=== PATIENT | female | born 1975 | race Caucasian/White ===

== ENCOUNTER 2020-06-26 17:13 | Emergency (ER) | payer OTHER ==
[~2020-06-26] VITALS: Ht 162.6 cm; Wt 72.7 kg
--- NOTE | 2020-06-26 17:49 | EKG ---
[address] [address] Test Date: 2020-06-26 Test Time: 17:22:31 Pat Name: ANIYA AGUILAR Department: Room: Gender: F Outcomes Specialist: : [id number] Requested By: RUSH LAWRENCE Order Number: [id number] Reading MD: Measurements Intervals [place] Rate: 76 P: 0 IA: 112 QRS: 19 QRSD: 84 T: 33 QT: 388 QTc: 441 Interpretive Statements SINUS RHYTHM NO SPECIFIC ECG ABNORMALITIES RI6.02 No previous ECG available for comparison
--- NOTE | 2020-06-26 17:53 | PHYS DOC ---
Past History Past Medical History: Other Additional Past Medical Histor: polycystic Kidney disease, (SUMAYA COLLADO APRN) Alcohol Use: None (SUMAYA COLLADO APRN) Adult General Chief Complaint Chief Complaint: CHEST PAIN-CARDIAC NATURE HPI HPI Patient is a 45-year-old female presents emergency department complaining of chest pressure for the past 2 days. Patient rates her pressure a 6-7/10 on a 1- 10 pressure scale. Patient states that it does not radiate, denies nausea, vomiting, diarrhea, or abdominal pain. Patient states she has diaphoretic episodes, but seems to have them often. Patient states she notices the pain relieves for short period of time after taking Tums or other antacid. Patient denies heart palpitations, chest congestion, sore throat, nasal congestion. Patient denies head pain, neck pain, pain to her extremities, visual changes, urinary tract infection signs and symptoms, denies vaginal discharge or STI concerns. Patient denies loss of taste or loss of smell, patient states she has had her second dose of COVID-19 vaccine on the night, denies recent exposure to the COVID-19 virus. Patient states she follows closely with Dr. Olson and has discussed with Dr. Olson follow-up with a GI specialist as she has been having GI issues lately. Patient denies constipation or diarrhea today. Patient states no one else living in her home is having the same symptoms she. Patient states her only medications are losartan, fluoxetine, and a control pill. Patient denies smoking cigarettes, states she drinks occasionally with friends, denies illicit drug use. (SUMAYA COLLADO APRN) Review of Systems Review of Systems 14 body systems of review of systems have been reviewed. See HPI for pertinent positives and negative responses, otherwise all other systems are negative, nonpertinent or noncontributory. (SUMAYA COLLADO APRN) Physical Exam Physical Exam Constitutional: Well developed, well nourished, no acute distress, non-toxic ap pearance. 45-year-old female in no apparent distress. HENT: Normocephalic, atraumatic, bilateral external ears normal, oropharynx moist, no oral exudates, nose normal. No lymphadenopathy of the head or neck appreciated, oropharynx moist, no infectious process appreciated, bilateral TMs within normal limits no drainage noted. Eyes: PERRLA, EOMI, conjunctiva normal, no discharge. Neck: Normal range of motion, no tenderness, supple, no stridor. No midline spinal tenderness, no nuchal rigidity, no meningeal signs. Cardiovascular:Heart rate regular rhythm, heart sounds S1-S2 to auscultation. Lungs & Thorax: Bilateral breath sounds clear to auscultation all lung torres, no adventitious lung sounds appreciated. No increased pain to palpation of the anterior thorax and chest. Abdomen: Bowel sounds normal, soft, no tenderness, no masses, no pulsatile masses. Skin: Warm, dry, no erythema, no rash. Back: No tenderness along bony prominences of the vertebral spine or adjacent structures of the back Extremities: No tenderness, no cyanosis, no clubbing, ROM intact, no edema. Neurologic: Alert and oriented X 3, normal motor function, normal sensory function, no focal deficits noted. Psychologic: Affect normal, judgement normal, mood normal. (SUMAYA COLLADO APRN) Current Patient Data Vital Signs Vital Signs Date Time Temp Pulse Resp B/P (MAP) Pulse Ox O2 Delivery O2 Flow Rate FiO2 06/26/20 17:27 98.7 90 20 171/94 (119) 98 Room Air (SUMAYA COLLADO APRN) EKG EKG EKG performed at 1722 by ED nursing staff shows a heart rate of 76 bpm normal sinus rhythm without ectopy, SC interval 0.112, QTc interval 0.441, no acute STEMI, no ACS, no acute ischemia appreciated, EKG interpreted by ED attending physician Dr. Lawrence. (SUMAYA COLLADO APRN) Radiology/Procedures Radiology/Procedures [] (SUMAYA COLLADO APRN) Heart Score C/O Chest Pain: Yes HEART Score for Chest Pain: HEART Score for Chest Pain Response (Comments) Value History Slighlty/Non-Suspicious 0 ECG Normal 0 Age < 45 0 Risk Factors No Risk Factors 0 Troponin < Normal Limit 0 Total 0 Risk Factors: Risk Factors: DM, Current or recent (<one month) smoker, HTN, HLP, family history of CAD, obesity. Risk Scores: Risk Factors: DM, Current or recent (<one month) smoker, HTN, HLP, family h istory of CAD, obesity. (SUMAYA COLLADO APRN) Course & Med Decision Making Course & Med Decision Making Pertinent Labs and Imaging studies reviewed. (See chart for details) 45-year-old female, vital signs reviewed, presents emergency department complaint of chest pressure. Physical examination concerning for GI versus cardiorespiratory process. Patient's heart score was 0, cardiorespiratory examination was initiated in the ED. Patient's chest x-ray, EKG, serum labs nonconcerning for acute cardiorespiratory process. Patient will be given GI cocktail and reevaluated. Patient's heart score equals 0 Approximately 20 minutes after GI cocktail was administered, reevaluation of the patient found the patient to be pain-free and symptom-free, patient states she believes this GI cocktail did the trick. Discussed with patient findings of chest x-ray, EKG, and serum labs, discussed with patient this is most likely a dyspepsia or GI upset. Patient states she agrees with this as the GI cocktail relieved her symptoms. Discussed with patient will start on Pepcid 20 mg nightly for the next 30 days, strict follow-up with Dr. Olson as Dr. King is trying to secure a GI specialist for her to follow-up with. Patient gave verbal understanding of discharge home instructions, Pepcid prescription instructions, follow-up with Dr. King soon, return to ER precautions and concerns, patient was discharged home without incident. (SUMAYA COLLADO APRN) Course & Med Decision Making I oversaw care of patient while in ER and reviewed case with [employer]. I agree to note and plan of care Electronically signed, Rush Lawrence DO (RUSH LAWRENCE DO) [place] Disclaimer [place] Disclaimer This electronic medical record was generated, in whole or in part, using a voice recognition dictation system. (SUMAYA COLLADO APRN) Departure Departure: Impression: Primary Impression: Dyspepsia Additional Impression: Chest pain of unknown etiology Disposition: 01 DC HOME SELF CARE/HOMELESS Condition: GOOD Referrals: RACHEAL NUNES (PCP) Patient Instructions: Indigestion Additional Instructions: You are seen today in the emergency department for chest pain, I have performed an extensive cardiorespiratory work-up. There were no concerning findings on your EKG, chest x-ray, or lab work. You responded very well to the GI cocktail which was leads me to suspect this is GI upset. We discussed starting on Pepcid 20 mg nightly for the next 30 days, we also discussed strict follow-up with Dr. Olson soon for ongoing evaluation of your GI symptoms as this has been bothering you for quite some time. Dr. King has mentioned to you a referral to a GI specialist, please consider this as a GI specialist may diagnose and treat your problem more accurately if it is in fact GI related. Please return to the emergency department for worsening symptoms or other concerns. EMERGENCY DEPARTMENT GENERAL DISCHARGE INSTRUCTIONS Thank you for coming to [facility] (ED) today and trusting us with you care. We trust that you had a positivie experience in our Emergency Department. If you wish to speak to the department management, you may call the director at [phone]. YOUR FOLLOW UP INSTRUCTIONS ARE FOLLOWS: 1. Do you have a private Doctor? If you do not have a private doctor, please ask for a resource list of physicians or clinics that may be able to assist you with follow up care. 2. The Emergency Physician has interpreted your x-rays. The X-Ray specialist will also review them. If there is a change in the findings, you will be notified in 48 hours when at all possible. 3. A lab test or culture has been done, your results will be reviewed and you will be notified if you need a change in treatment. ADDITIONAL INSTRUCTIONS AND INFORMATION: 1. Your care today has been supervised by a physician who is specially trained in emergency care. Many problems require more than one evaluation for a complete diagnosis and treatment. We recommend that you schedule your follow up appointment as recommended to ensure complete treatment of you illness or injury. If you are unable to obtain follow up care and continue to have a problem, or if your condition worsens, we recommend that you return to the ED. 2. We are not able to safely determine your condition over the phone nor are we able to give sound medical advice over the phone. For these safety reasons, if you call for medical advice we will ask you to come to the ED for further evaluation. 3. If you have any questions regarding these discharge instructions please call the ED at [phone]. SAFETY INFORMATION: In the interest of safety, wellness, and injury prevention; we encourage you to wear your sealbelt, if you smoke; quite smoking, and we encourage family to use a protective helmet for bicycling and other sporting events that present an increased risk for head injury. IF YOUR SYMPTOMS WORSEN OR NEW SYMPTOMS DEVELOP, OR YOU HAVE CONCERNS ABOUT YOUR CONDITION; OR IF YOUR CONDITION WORSENS WHILE YOU ARE WAITING FOR YOUR FOLLOW UP APPOINTMENT; EITHER CONTACT YOUR PRIMARY CARE DOCTOR, THE PHYSICIAN WHOSE NAME AND NUMBER YOU WERE GIVEN, OR RETURN TO THE ED IMMEDIATELY. Scripts Famotidine (PEPCID) 20 Mg Tablet 20 MG PO HS for dyspepsia for 30 Days, #30 TAB 0 Refills Please take 1 tablet each night before going to bed. Prov: SUMAYA COLLADO APRN 06/26/20 Problem Qualifiers SUMAYA COLLADO APRN Jun 26, 2020 17:53 RUSH LAWRENCE DO Jun 27, 2020 20:04
[2020-06-26] MEDS ORDERED: ASPIRIN CHEWABLE 81 MG TABLET. PO ONE (18:30)
[2020-06-26 18:38] LABS: BASO % 0 % (0-3); EOS # 0.2 x10^3/uL (0.0-0.7); EOS % 2 % (0-3); HEMATOCRIT 37.8 % (36.0-47.0); HEMOGLOBIN 12.5 g/dL (12.0-15.5); LYMPH % 17 % (24-48); MEAN CORPUSCULAR HEMOGLOBIN 32 pg (25-35); MEAN CORPUSCULAR HGB CONC 33 g/dL (31-37); MEAN CORPUSCULAR VOLUME 96 fL (79-100); MONO # 0.5 x10^3/uL (0.0-1.1); MONO % 4 % (0-9); NEUT # 9.2 x10^3uL (1.8-7.7); NEUT % 77 % (31-73); PLATELET COUNT 268 x10^3/uL (140-400); RED BLOOD COUNT 3.94 x10^6/uL (3.50-5.40); RED CELL DISTRIBUTION WIDTH 13.1 % (11.5-14.5); WHITE BLOOD COUNT 11.9 x10^3/uL (4.0-11.0)
[2020-06-26 18:43] LABS: CALCIUM 9.6 mg/dL (8.5-10.1); CREATININE 0.9 mg/dL (0.6-1.0); POTASSIUM 3.6 mmol/L (3.5-5.1)
[2020-06-26 19:00] LABS: ALBUMIN 3.2 g/dL (3.4-5.0); ALBUMIN/GLOBULIN RATIO 0.8 (1.0-1.7); MAGNESIUM 1.9 mg/dL (1.8-2.4); PHOSPHORUS 4.7 mg/dL (2.6-4.7); TOTAL BILIRUBIN 0.2 mg/dL (0.2-1.0); TOTAL PROTEIN 7.3 g/dL (6.4-8.2)
--- NOTE | 2020-06-26 19:24 | RAD ---
INDICATION: Reason: CHEST PAIN / Spl. Instructions: / History: COMPARISON: None. FINDINGS: 2 view of chest obtained. No focal airspace consolidation. Cardiomediastinal contour unremarkable. No acute osseous abnormality. IMPRESSION: * No focal airspace consolidation or edema. Electronically signed by: Erick Crain MD (06/26/2020 7:22 PM) [id number]
[2020-06-26] MEDS ORDERED: KETOROLAC 30 MG/ML VIAL. IVP ONE (19:30)
[2020-06-26] MEDS ORDERED: LIDO:MAALOX 1:1 20 ML SINGLE DOSE. PO ONE (19:30)
[2020-06-26] MEDS ORDERED: FAMO-63 PO (20:56)
[2020-06-26 21:10] VITALS: BP 171/94
== END 2020-06-26 21:10 | disposition home or self-care (01) ==
LOC: ER 17:13
DX: R07.89 Other chest pain (principal); R10.13 Epigastric pain; Q61.3 Polycystic kidney, unspecified
CPT/HCPCS: 36415; 71046; 80053; 82553; 83690; 83735; 84100; 84484; 85025; 85379; 93005; 96374; 99285; J1885